=== PATIENT | male | born 1965 | race Hispanic/Latino ===

== ENCOUNTER 2017-07-09 09:05 | Day surgery (SDC) | payer BC ==
[2017-07-09] MEDS ORDERED: DIPRIVAN 10 MG/ML IV ONE (09:11)
[2017-07-09] MEDS ORDERED: XYLOCAINE MPF 2% ONE (09:12)
[2017-07-09] MEDS ORDERED: ZOFRAN ONE (09:12)
[2017-07-09] MEDS ORDERED: DECADRON ONE (09:12)
[2017-07-09] MEDS ORDERED: DILAUDID ONE (09:12)
--- NOTE | 2017-07-09 10:59 | Anesthesia Consultation ---
Anesthesia Consult and Med Hx Date of service: 07/09/17 - Airway Anesthetic Teeth Evaluation: Good ROM Head & Neck: Adequate Mental/Hyoid Distance: Adequate Mallampati Class: Class II Intubation Access Assessment: Probably Good - Pulmonary Exam CTA: Yes - Cardiac Exam Cardiac Exam: RRR - Pre-Operative Health Status ASA Pre-Surgery Classification: ASA2 Proposed Anesthetic Plan: General - Pulmonary Hx Smoking: No (CHEWING TOBACCO ONLY) Hx Sleep Apnea: No (DANIELLE PRE SCREEN HIGH RISK) - Cardiovascular System Hx Hypertension: Yes (X 15 YRS) - Other Systems Hx Cancer: No
[2017-07-09] MEDS ORDERED: LACTATED RINGERS 1,000 ML IV SCH (11:00)
[2017-07-09] MEDS ORDERED: PEPCID IV NR (11:00)
--- NOTE | 2017-07-09 11:00 | Anesthesia Day of Surgery ---
Anesthesia Day of Surgery - Day of Surgery Patient Examined: Yes Patient H&P Reviewed: Yes Patient is NPO: Yes
[2017-07-09] MEDS ORDERED: PERCOCET 5/325 PO PRN (11:03)
[2017-07-09] MEDS ORDERED: ZOFRAN IV PRN (11:03)
[2017-07-09] MEDS ORDERED: DILAUDID IV PRN (11:03)
[2017-07-09] MEDS ORDERED: PEPCID IV ONE (11:06)
[2017-07-09] MEDS ORDERED: LACTATED RINGERS 1,000 ML ONE (11:06)
[2017-07-09] MEDS ORDERED: ANCEF/STERILE WATER 2 GM/20 ML 2 GM/20 ML SYRINGE IV ONE (11:06)
[2017-07-09] MEDS ORDERED: VERSED IV NR (13:00)
[2017-07-09] MEDS ORDERED: NACL 0.9% 1000 ML 1,000 ML ONE (13:11)
--- NOTE | 2017-07-09 13:26 | Short Stay Summary ---
Short Stay Documentation Date of service: 07/09/17 - History Past Medical History: No medical history - Allergies and Medications Current Medications: Allergies No Known Allergies Allergy (Verified 07/07/17 16:19) Home Medications Medication Instructions Recorded Confirmed Last Taken Type Amoxicillin/K Clav Tab [Augmentin 1 each PO Q12HR 07/07/17 07/09/17 07/08/17 21: 00 History 500 MG TAB] Bisoprolol/Hctz [Ziac 2.5-6.25] 1 each PO DAILY 07/07/17 07/09/17 07/09/17 08: 00 History Testosterone Cypionate [Testone 200 mg IM QWEEK 07/07/17 07/09/17 07/06/17 17: 00 History Cik] amLODIPine [Norvasc] 10 mg PO DAILY 07/07/17 07/09/17 07/08/17 20:00 History Active Medications Famotidine (Pepcid) 20 mg IV PREOP NR Stop: 07/09/17 23:59 Hydromorphone HCl (Dilaudid) 0.5 mg IV Q10MIN PRN PRN Reason: Pain , Severe (7-10) Stop: 07/09/17 23:59 Lactated Ringer's (Lactated Ringers) 1,000 mls @ 100 mls/hr IV DIRECT PIPER Last Admin: 07/09/17 11:10 Dose: 100 mls/hr Midazolam HCl (Versed) 2 mg IV PREOP NR Stop: 07/09/17 23:59 Last Admin: 07/09/17 12:24 Dose: 2 mg Ondansetron HCl (Zofran) 4 mg IV ONCE PRN PRN Reason: Nausea And Vomiting Stop: 07/09/17 23:59 Oxycodone/Acetaminophen (Percocet 5/325) 1 tab PO ONCE PRN PRN Reason: Pain, Moderate (4-6) Stop: 07/09/17 23:59 - Brief post op/procedure progress note Date of procedure: 07/09/17 Pre-op diagnosis: 7mm left renal stone Post-op diagnosis: same Procedure: left eswl Anesthesia: GETA Surgeon: ADALBERTO GUTHRIE Estimated blood loss: none Condition: stable - Hospital course Hospital course: Dilaudid & post op info on chart - Disposition Condition at discharge: Stable Disposition: DC-01 TO HOME OR SELFCARE Short Stay Discharge Plan Follow up with: MAUREEN SANCHEZ MD [Primary Care Provider] - 7 Days
[2017-07-09] MEDS ORDERED: ROBINUL IV ONE (14:00)
--- NOTE | 2017-07-09 14:24 | Post Anesthesia Evaluation ---
- Post Anesthesia Evaluation Patient Participated: Yes Airway Patent: Yes Stable Respiratory Function: Yes Nausea/Vomiting: No Temp > 96.8F: Yes Pain Manageable: Yes Adequeate Hydration: Yes Anesthesia Complications: No
[2017-07-09 14:51] VITALS: BP 157/78
--- NOTE | 2017-07-14 12:24 | Operative Report ---
PREOPERATIVE DIAGNOSIS: Left renal stone. POSTOPERATIVE DIAGNOSIS: Left renal stone. PROCEDURE: Left extracorporal shock wave lithotripsy. SURGEON: Anant Tripathi MD ANESTHESIA: General. ESTIMATED BLOOD LOSS: Minimal. FLUIDS: Crystalloid. COMPLICATIONS: No complications. INDICATIONS: This 51-year-old gentleman seen by Dr. Stone in the office he has a history of recurrent kidney stones. KUB revealed 4 mm left renal stone. He presents for lithotripsy. DESCRIPTION OF PROCEDURE: The patient was taken to the operative suite, placed in a supine position. After adequate general anesthesia, the stone was localized in 2 planes using fluoroscopy. Extracorporal shock wave lithotripsy was administered with maximum 2500 shocks. Renal pause after 200 shocks was performed. Adequate fragmentation could be appreciated. He tolerated the procedure well, was extubated and taken to recovery room in stable condition. JOB# [id number] ASHLEY/KAIA
== END 2017-07-09 15:05 | disposition home or self-care (01) ==
LOC: OR 09:05
PROVIDERS: ATTEND Urology
DX: N20.0 Calculus of kidney (principal); I10 Essential (primary) hypertension; Z96.649 Presence of unspecified artificial hip joint
CPT/HCPCS: 36415; 50590; 84132; J0690; J1100; J1170; J2250; J2405; J2704; J7030; J7120